=== PATIENT | male | born 1970 | race Caucasian/White ===

== ENCOUNTER 2025-03-31 20:21 | Emergency (ER) | payer BC, SELFPAY ==
[2025-03-31 20:24] VITALS: BP 90/61
[2025-03-31 20:58] LABS: Hematocrit 36.2 % (39.0-52.0); Hemoglobin 12.6 g/dL (13.0-18.0); Mean Corp Hgb Conc. 34.8 g/dL (33.0-37.0); Mean Corpuscular Volume 85.4 fL (80.0-94.0); Nucleated Red Blood Cells % 0 % (-); Platelet Count 110 10^3/uL (130-400); Red Cell Dist. Width 11.6 % (11.5-14.5)
[2025-03-31 21:05] LABS: C-Reactive Protein 60.80 mg/L (0.0-10.00)
[2025-03-31 21:36] LABS: ALT (SGPT) 83 U/L (0-50); AST (SGOT) 66 U/L (17-59); Albumin 3.9 g/dl (3.5-5.0); Alkaline Phosphatase 109 U/L (38-126); Blood Urea Nitrogen 21 mg/dl (9-20); Calcium 8.3 mg/dl (8.4-10.2); Carbon Dioxide 25 mmol/L (22-30); Chloride 97 mmol/L (98-107); Glucose 132 mg/dl (70-99); Potassium 3.7 mmol/L (3.5-5.1); Sodium 130 mmol/L (135-145); Total Protein 6.7 g/dl (6.3-8.2); eGFR > 60.00
[2025-03-31 21:49] VITALS: BP 106/61
[2025-03-31 22:11] VITALS: BP 103/56
[2025-03-31] MEDS: DECADRON 10 MG PO (22:39)
--- NOTE | 2025-03-31 22:56 | ED.SKININJ ---
HPI-Injury
General
Chief Complaint: Skin Problem
Source: patient
Exam Limitations: none
Time Seen by Provider: 03/31/25 21:48
Nursing documentation reviewed up to this point in time: agreed with
History of Present Illness-Injury
Is pt an associate of [facility]?: No
Initial Injury comments:
Patient to ED with complaint of generalized rash. Symptoms started 2 days ago, Reports rash quiroz and itches. He was placed on Bactrim DS 10 days ago after having cyst on upper back drained by pre press operator. States 2 days ago when rash started
he stopped med. States there was no change in rash so he restarted med again tonight. To ED accompanied by spouse for eval.
Past History
Past History
ED Past Medical History: None
ED Past Surgical History: None
Social History
Tobacco: Non-smoker
Alcohol: Occasional
Drug: None
Personal:
Living: with family
Employment: Employed
Family History
Family History: Hypertension
Review of Systems
Review of Systems
Allergies reviewed?: Yes
All Other Systems: ROS reviewed and negative except as documented in HPI and ROS
Skin: Reports other (red macular rash to trunck, upper and lower extremities)
Neurological: Reports no symptoms
Psychiatric: Reports no symptoms
Phy Exam
General Physical Exam
General Presentation: well appearing and no apparent distress
General age: appears stated age
General Skin: warm and dry
General Habitus: normal
General Mental: alert
Cardiovascular Exam
Cardiovascular Exam: regular rate/rhythm and no edema
Pulmonary Exam
Pulmonary Exam: lungs clear, no respiratory distress and chest non tender
Musculoskeletal Exam
Musculoskeletal Exam: full ROM and neuro vasc intact
Skin Exam
Skin Exam: warm/dry and other (macular rash to trunk, upper and lower extremities. 1cm open wound left upper back with small amt of yellow discharge. No surrounding erythema.)
Psychiatric Exam
Psychiatric Exam: normal mood/affect
Course
Orders/Labs/Results
Orders:
Orders
03/31/25 20:39
CRP [C-Reactive Protein] Urgent
Complete Blood Count/With Diff Urgent
Comprehensive Metabolic Panel Urgent
Erythrocyte Sed Rate Urgent
Comment: ADD ON
Lactic Acid Urgent
03/31/25 21:52
Add On- LAB Urgent
Tests Added?: sed rate
03/31/25 22:34
Dexamethasone Pf [Decadron] 10 mg PO NOW STA
Abnormal Lab Results
03/31/25
20:39
WBC 3.3 L 10^3/uL
(4.8-10.8)
RBC 4.24 L 10^6/uL
(4.70-6.10)
Hgb 12.6 L g/dL
(13.0-18.0)
Hct 36.2 L %
(39.0-52.0)
Plt Count 110 L 10^3/uL
(130-400)
Absolute Lymphs (auto) 0.6 L 10^3/uL
(1.2-3.4)
Lymphocytes % 19.6 L %
(20.5-51.1)
Eosinophils % 6.7 H %
(0-6)
Sodium 130 L mmol/L
(135-145)
Chloride 97 L mmol/L
(98-107)
BUN 21 H mg/dl
(9-20)
Glucose 132 H mg/dl
(70-99)
Calcium 8.3 L mg/dl
(8.4-10.2)
AST 66 H U/L
(17-59)
ALT 83 H U/L
(0-50)
C-Reactive Protein 60.80 H mg/L
(0.0-10.00)
03/31/25 20:39
03/31/25 20:39
Vital Signs
Initial and Last Documented VS:
Initial Vital Signs
Temp Pulse Resp BP Pulse Ox
99.0 F 76 20 90/61 97
03/31/25 20:24 03/31/25 20:24 03/31/25 20:24 03/31/25 20:24 03/31/25 20:24
Last Documented Vital Signs
Temp Pulse Resp BP Pulse Ox
99.3 F 71 20 103/56 100
03/31/25 21:49 03/31/25 21:49 03/31/25 20:24 03/31/25 22:11 03/31/25 23:04
*Pulse Oximetry
SaO2: 100
Oxygen Mode of Delivery: Room air
Patient hypoxic: no
*Critical Care Note
Total Time (30-74mins, 75-104mins- exclusive of procedures): Not Applicable
Update Note
Update Note:
Patient to ED for eval of macular rash to trunk and extremities x 2 days. Placed on Bactrim DS 10 days ago for skin abscess on left upper back. case discussed with Dr. Burden, labs reviewed with her. Decadron po given in ED, will place on
prednisone taper. Will discharge home, given instructions on s/s to return to ED and he is agreeable to plan.
ED Attending Note
-
Portions of this chart may have been created with voice recognition software.� Occasional wrong word or��sound alike� substitutions may have occurred due to the inherent limitations of voice recognition software.
Discharge Plan
Departure
Patient Disposition: Home (Routine Discharge)
Date of Disposition: 03/31/25
Time of Disposition: 22:34
Patient with high blood pressure during this ER visit?: No
Condition: Good
Covid-19: Not Applicable
Discharge Problem:
Allergic drug reaction
Instructions: Sulfonamide allergy, Skin rash - ED discharge instructions
Prescriptions:
New
prednisone 10 mg Tablet
See Rx Instructions .ROUTE .COMPLEX Qty: 30 0RF
Rx Instructions:
Take By Mouth:
40 mg daily x3 days, 30 mg daily x3 days,
20 mg daily x3 days, 10 mg daily x3 days.
No Action
Levothyroxine
oxycodone-acetaminophen 5 MG/325 MG tablet
1 tab PO .Q4-6HPRN PRN (Reason: pain) Qty: 20 0RF
Referrals:
Randy Busch MD [Family Provider, Radiology]
Activity Restrictions/Additional Instructions:
Return to the emergency department for any changes in/worsening of your symptoms.
Interventions
Interventions:
*Risk Screen - Suicide Last Done: 03/31/25 21:50
*General Assessment Last Done: 03/31/25 20:24
*Neglect/Abuse Screening Last Done: 03/31/25 21:50
*ED- Fall Risk Assessment Last Done: 03/31/25 21:43
*ED COVID-19 Vaccine History Last Done: 03/31/25 21:43
*Nursing Disposition Last Done: 03/31/25 22:36
ED-Skin Assessment Last Done: 03/31/25 21:43
Discharge Date and Time
Discharge Date/Time: 03/31/25 22:43
Print Language: POLISH
== END 2025-03-31 22:43 | disposition home or self-care (01) ==
LOC: EMR 20:21
PROVIDERS: Emergency Medicine; EMERGENCY PHYSICIAN Emergency Medicine; FAMILY PHYSICIAN Radiology Radiation Oncology
DX: L27.0 Generalized skin eruption due to drugs and medicaments taken internally (principal); T36.8X5A Adverse effect of other systemic antibiotics, initial encounter
CPT/HCPCS: 99283; 80053; 83605; 85025; 85652; 86140